=== PATIENT | male | born 1950 | race Two or more races ===

== ENCOUNTER 2023-03-18 12:04 | Inpatient (IN) | payer OTHER ==
[~2023-03-18] VITALS: Ht 188 cm; Wt 54.4 kg
[2023-03-23] MEDS ORDERED: RIVASTIGMINE1 EACH (16:25)
[2023-03-23] MEDS ORDERED: RESTORIL30 MG (16:25)
== END 2023-04-05 13:59 | disposition expired | DRG 853 ==
LOC: ER 12:04 → ICU 19:19 → ICU-2 19:19 → ICU 03-20 01:05 → SURH 03-23 12:58
PROVIDERS: ADMIT Internal Medicine; ATTEND Internal Medicine
PROC: 4A12X4Z Monitoring of Cardiac Electrical Activity, External Approach (ICD-10-PCS; 2023-03-18)
PROC: 02HV33Z Insertion of Infusion Device into Superior Vena Cava, Percutaneous Approach (ICD-10-PCS; 2023-03-19)
PROC: 30243N1 Transfusion of Nonautologous Red Blood Cells into Central Vein, Percutaneous Approach (ICD-10-PCS; 2023-03-19)
PROC: 0QB10ZZ Excision of Sacrum, Open Approach (ICD-10-PCS; principal; 2023-03-25)
PROC: 0JBL0ZZ Excision of Right Upper Leg Subcutaneous Tissue and Fascia, Open Approach (ICD-10-PCS; 2023-03-25)
DX: A41.52 Sepsis due to Pseudomonas (principal); J15.211 Pneumonia due to Methicillin susceptible Staphylococcus aureus; L89.024 Pressure ulcer of left elbow, stage 4; L89.014 Pressure ulcer of right elbow, stage 4; L89.224 Pressure ulcer of left hip, stage 4; L89.214 Pressure ulcer of right hip, stage 4; L89.154 Pressure ulcer of sacral region, stage 4; L89.894 Pressure ulcer of other site, stage 4; L89.124 Pressure ulcer of left upper back, stage 4; L89.114 Pressure ulcer of right upper back, stage 4; L89.44 Pressure ulcer of contiguous site of back, buttock and hip, stage 4; N39.0 Urinary tract infection, site not specified; I96 Gangrene, not elsewhere classified; E87.1 Hypo-osmolality and hyponatremia; G82.20 Paraplegia, unspecified; N17.9 Acute kidney failure, unspecified; E46 Unspecified protein-calorie malnutrition; L89.629 Pressure ulcer of left heel, unspecified stage; L89.619 Pressure ulcer of right heel, unspecified stage; E86.0 Dehydration; E86.1 Hypovolemia; E87.5 Hyperkalemia; B96.4 Proteus (mirabilis) (morganii) as the cause of diseases classified elsewhere; D63.8 Anemia in other chronic diseases classified elsewhere; G20 Parkinson's disease; G31.83 Neurocognitive disorder with Lewy bodies; F02.C0 Dementia in other diseases classified elsewhere, severe, without behavioral disturbance, psychotic disturbance, mood disturbance, and anxiety; Y95 Nosocomial condition; Z66 Do not resuscitate; Z74.01 Bed confinement status; R13.19 Other dysphagia